=== PATIENT | female | born 1985 | race Hispanic/Latino ===

== ENCOUNTER 2017-08-09 10:24 | Inpatient (IN) | payer BC, OTHER ==
[2017-08-09 10:37] VITALS: O2SAT 100
[2017-08-09] MEDS ORDERED: Sodium Chloride 0.9% 1,000 ML IV STA (10:46)
--- NOTE | 2017-08-09 10:54 | ED PDOC ---
HPI: Female Pain Time Seen by Provider: 08/09/17 10:25 Chief Complaint (Nursing): Female Genitourinary Chief Complaint (Provider): with vaginal bleeding History Per: Patient Additional Complaint(s): 32 year old , currently 16 weeks presents with heavy vaginal bleeding that started earlier this morning. Patient states that she passed the fetus earlier this morning and since then has had persistent bleeding. She has slight cramping abdominal pain relieved by Motrin taken earlier. No associated nausea or vomiting, no fever or chills. Patient contacted her OB and was told to come to the emergency room. Past Medical History Reviewed: Historical Data, Nursing Documentation, Vital Signs Vital Signs: Last Vital Signs Temp 97 F L 08/09/17 10:30 Pulse 116 H 08/09/17 10:30 Resp 20 08/09/17 10:30 BP 137/83 08/09/17 10:30 Pulse Ox 100 08/09/17 10:30 - Medical History PMH: No Chronic Diseases - Family History Family History: States: No Known Family Hx - Living Arrangements Living Arrangements: With Family - Social History Current smoker - smoking cessation education provided: No Alcohol: Occasional Drugs: Denies - Home Medications Home Medications: Ambulatory Orders Medication Instructions Recorded No Known Home Med 08/09/17 - Allergies Allergies/Adverse Reactions: Allergies Allergy/AdvReac Type Severity Reaction Status Date / Time No Known Allergies Allergy Verified 08/09/17 11:13 Review of Systems ROS Statement: Except As Marked, All Systems Reviewed And Found Negative Constitutional: Negative for: Fever Genitourinary Female: Positive for: Vaginal Bleeding, Pelvic Pain Physical Exam - Reviewed Nursing Documentation Reviewed: Yes Vital Signs Reviewed: Yes - Physical Exam Appears: Positive for: Well, Non-toxic, No Acute Distress Skin: Negative for: Rash Eye Exam: Positive for: Normal appearance Cardiovascular/Chest: Positive for: Regular Rate, Rhythm Respiratory: Positive for: Normal Breath Sounds Gastrointestinal/Abdominal: Positive for: Other (Gravid nontender abdomen) Pelvic Exam: Positive for: Other (moderate amount of vaginal bleeding with retained products of conception noted in vaginal vault) Neurologic/Psych: Positive for: Alert, Oriented - Laboratory Results Result Diagrams: 08/09/17 11:04 - ECG O2 Sat by Pulse Oximetry: 100 Pulse Ox Interpretation: Normal Medical Decision Making Medical Decision Makin32 year old female with vaginal bleeding Plan: Case was d/w Dr. Trevino, patient's OB who states to order CBC, T&S, Beta and Pelvic US Dr. Trevino at bedside for examination LR infused IV Dr. Trevino to take patient to OR for D&C. Disposition - Clinical Impression Clinical Impression: Incomplete - Patient ED Disposition Is Patient to be Admitted: Yes - Disposition Disposition Time: 12:36 Condition: STABLE Forms: [employer] (Italian) Results - Lab Results Lab Results: 08/09/17 08/09/17 08/09/17 11:04 11:04 11:04 WBC 12.2 H RBC 4.31 Hgb 11.2 L Hct 35.6 MCV 82.5 D MCH 26.0 L MCHC 31.5 L RDW 14.9 H Plt Count 138 MPV 11.3 Neut % (Auto) 79.9 H Lymph % (Auto) 12.4 L [place] % (Auto) 5.4 Eos % (Auto) 1.5 Baso % (Auto) 0.8 Neut # 9.8 H Lymph # 1.5 [place] # 0.7 Eos # 0.2 Baso # 0.1 Beta HCG, Quant 7325.00 Blood Type B POSITIVE Antibody Screen Pending BBK History Checked Patient has bt
[2017-08-09 11:09] LABS: BASO # 0.1 K/uL (0.0-0.2); BASO % 0.8 % (0.0-2.0); EOS # 0.2 K/uL (0.0-0.7); EOS % 1.5 % (0.0-4.0); HEMATOCRIT 35.6 % (34.0-47.0); LYMPH # 1.5 K/uL (1.0-4.3); LYMPH % 12.4 % (20.0-40.0); MEAN CORPUSCULAR HGB CONC 31.5 g/dL (33.0-37.0); MEAN PLATELET VOLUME 11.3 fl (7.2-11.7); MONO # 0.7 K/uL (0.0-0.8); MONO % 5.4 % (0.0-10.0); NEUT # 9.8 K/uL (1.8-7.0); NEUT % 79.9 % (50.0-75.0); RED CELL DISTRIBUTION WIDTH 14.9 % (11.5-14.5); WHITE BLOOD COUNT 12.2 K/uL (4.8-10.8)
[2017-08-09] MEDS ORDERED: Lactated Ringer's 1,000 ML IV ONE ×2 (11:15→13:25)
[2017-08-09 11:17] LABS: MEAN CELL VOLUME 82.5 fl (81.0-99.0)
--- NOTE | 2017-08-09 11:46 | CP.SDSHP ---
Same Day Surgery H & P - History Proposed Procedure: D&C Pre-Op Diagnosis: Incomplete Ab - Previous Medical/Surgical History Previous Surgical History: 2012 - colonoscopy - Allergies Allergies: Allergies No Known Allergies Allergy (Verified 08/09/17 11:13) - Current Medications Current Medications: vitamins - Physical Exam Vital Signs: Vital Signs 08/09/17 08/09/17 08/09/17 10:30 11:08 11:36 Temperature 97 F L 97 F L Pulse Rate 116 H 116 H Respiratory 20 20 Rate Blood Pressure 137/83 137/83 O2 Sat by Pulse 100 100 Oximetry Mental Status: Alert & Oriented x3 Neuro: WNL Heart: WNL Lungs: WNL GI: WNL - {Optional Preform as Required} Abdomen: WNL Integument: WNL CAR LOT ATTENDANT: Other : WNL ENT: WNL Other Pertinent Findings: Blood clot and POC at cervical os...teased out but tissue still in cervix; open 1cm; uterus 8-9w size - Impression Impression: Incomplete . PLAN: D&C; informed consent discussed and obtained - Date & Time Date: 08/09/17 (c/o passing fetus and umbilical cord at home had VB. She called because she had VB that did not stop) Time: 11:00 Short Stay Discharge - Short Stay Discharge Admitting Diagnosis/Reason for Visit: VAGINAL BLEEDING Disposition: HOME/ ROUTINE
[2017-08-09] MEDS ORDERED: ceFAZolin IV 1 gm in Dextrose 1 GM/50 ML BAG IVPB ONE ×2 (11:48→12:33)
[2017-08-09] MEDS ORDERED: Propofol 10 mg/ml Inj (20 ML) ONE (13:22)
[2017-08-09] MEDS ORDERED: Midazolam 2 MG/2 ML VIAL ONE (13:23)
[2017-08-09] MEDS ORDERED: Oxycodone/Acetaminophen 5/325 mg Tab PO PRN (13:47)
--- NOTE | 2017-08-09 13:52 | PCM.SURG1 ---
Surgeon's Initial Post Op Note - Surgeon's Notes Surgeon: Ginger Trevino DO Installers Mechanical: none Type of Anesthesia: General LMA Anesthesia Administered By: Dr Bloom Pre-Operative Diagnosis: Incomplete Operative Findings: cervix open 1-2cm ; uterus 9w size Post-Operative Diagnosis: same Operation Performed: Evacuation and currettage Specimen/Specimens Removed: products of conception Estimated Blood Loss: EBL {In ML}: 20 Blood Products Given: N/A Drains Used: No Drains Post-Op Condition: Good Date of Surgery/Procedure: 08/09/17 Time of Surgery/Procedure: 13:30
[2017-08-09] MEDS ORDERED: Lactated Ringer's 1,000 ML IV SCH ×2 (14:00→14:15)
[2017-08-09] MEDS ORDERED: DiphenhydrAMINE 50 mg/ml Inj IVP PRN (14:10)
[2017-08-09] MEDS ORDERED: HYDROmorphone 0.5 mg/0.5 ml ISec IVP PRN (14:10)
[2017-08-09 14:21] VITALS: RESP 19
[2017-08-09 14:54] VITALS: BP 98/60; PULSE 75; TEMP 98
--- NOTE | 2017-08-09 17:48 | US ---
PROCEDURE: Ob/pelvic ultrasound HISTORY: Sixteen weeks ; heavy bleeding COMPARISON: Comparison made with prior pelvic ultrasound dated dated 03/04/2017 FINDINGS: UTERUS: The uterus is retroverted measuring approximately 9.3 x 7.0 x 7.6 cm. . No evidence of viable intrauterine gestation seen. There is a relatively large complex appearing structure within the endometrial canal measures approximate 3.0 x 3.4 x 4.7 cm. There appears to be some increased flow along the fundal margin of this structure that could represent a combination of clot and retained products of conception however clinical correlation recommended. CERVIX: Cervix is closed measuring approximately 3.28 cm RIGHT OVARY: Right ovary measures approximately 3.0 x 2.3 x 1.4 cm. No mass lesion. Normal flow. LEFT OVARY: Left ovary measures approximately 2.8 x 3.2 x 2.4 cm. No solid mass. Normal flow. FREE FLUID: No gross free fluid OTHER FINDINGS: None. IMPRESSION: There is no viable intrauterine gestation. There is a complex some structure within the lower endometrial canal that exhibits increased vascularity along the fundal margin ; findings suggest retained products of conception and clot however clinical correlation recommended. These findings were discussed with Dr. Trevino.
--- NOTE | 2017-08-10 07:24 | CP.PCM.DIS ---
Provider - Provider Date of Admission: 08/09/17 11:00 Attending physician: Alvarado Trevino DO Time Spent in preparation of Discharge (in minutes): 5 Hospital Course - Lab Results Lab Results: Most Recent Lab Values WBC 12.2 K/uL (4.8-10.8) H 08/09/17 11:04 RBC 4.31 Mil/uL (3.80-5.20) 08/09/17 11:04 Hgb 11.2 g/dL (12.0-16.0) L 08/09/17 11:04 Hct 35.6 % (34.0-47.0) 08/09/17 11:04 MCV 82.5 fl (81.0-99.0) D 08/09/17 11:04 MCH 26.0 pg (27.0-31.0) L 08/09/17 11:04 MCHC 31.5 g/dL (33.0-37.0) L 08/09/17 11:04 RDW 14.9 % (11.5-14.5) H 08/09/17 11:04 Plt Count 138 K/uL (130-400) 08/09/17 11:04 MPV 11.3 fl (7.2-11.7) 08/09/17 11:04 Neut % (Auto) 79.9 % (50.0-75.0) H 08/09/17 11:04 Lymph % (Auto) 12.4 % (20.0-40.0) L 08/09/17 11:04 [place] % (Auto) 5.4 % (0.0-10.0) 08/09/17 11:04 Eos % (Auto) 1.5 % (0.0-4.0) 08/09/17 11:04 Baso % (Auto) 0.8 % (0.0-2.0) 08/09/17 11:04 Neut # 9.8 K/uL (1.8-7.0) H 08/09/17 11:04 Lymph # 1.5 K/uL (1.0-4.3) 08/09/17 11:04 [place] # 0.7 K/uL (0.0-0.8) 08/09/17 11:04 Eos # 0.2 K/uL (0.0-0.7) 08/09/17 11:04 Baso # 0.1 K/uL (0.0-0.2) 08/09/17 11:04 Beta HCG, Quant 7325.00 mIU/mL 08/09/17 11:04 Blood Type B POSITIVE 08/09/17 11:04 Antibody Screen Negative 08/09/17 11:04 BBK History Checked Patient has bt 08/09/17 11:04 - Hospital Course Hospital Course: Admitted for D&C - Date & Time of H&P Date of H&P: 08/10/17 Time of H&P: 11:00 Discharge Exam - Head Exam Head Exam: NORMAL INSPECTION - GI/Abdominal Exam GI & Abdominal Exam: Unremarkable - Exam External exam: NORMAL EXTERNAL EXAM Additional comments: Cx open 1cm Discharge Plan - Discharge Medications Prescriptions: Acetaminophen with Codeine [Tylenol with Codeine #3 Tablet] 1 each PO Q4H PRN # 15 tablet PRN Reason: Pain, Moderate (4-7) - Follow Up Plan Condition: STABLE Disposition: HOME/ ROUTINE Instructions: Dilation and Curettage (DC) Additional Instructions: regular diet as tolerated take tylenol #3 for pain as needed every 4 hours no sex, douches, tampons until cleared to do so by MD drink lots of liquids and iron rich foods Follow up with Dr. Trevino in 2-3 weeks ( call for appt) Seek medical attention if you are soaking pads, you feel dizzy or light headed, you have new or increase in pain ,fever, fowl smell from vagina OR FOR ANY OTHER CONCERNS Referrals: Alvarado Trevino DO [Staff Provider] -
--- NOTE | 2017-08-11 08:45 | OP ---
PROCEDURE DATE: 08/09/2017 PREOPERATIVE DIAGNOSIS: Incomplete . POSTOPERATIVE DIAGNOSIS: Incomplete . OPERATION PERFORMED: Evacuation and curettage. SURGEON: Alvarado Trevino MD WATER TAXI CAPTAIN: None. ANESTHESIA ADMINISTERED BY: Natan Cabrera MD TYPE OF ANESTHESIA: General LMA. OPERATIVE FINDINGS: Cervix open 1 to 2 cm, products of conception noted with in the cervical os, uterus approximately 9 weeks in size. SPECIMEN: Products of conception. BLOOD LOSS: 20 mL. DRAINS: No drains. POSTOPERATIVE CONDITION: Good. DESCRIPTION OF PROCEDURE: Jacque was brought to the operating room, placed in a supine position. After successful induction of anesthesia by Dr. Cabrera, compression boots were placed on both lower extremities. She was placed on lithotomy position. She was draped and prepped in the usual sterile manner. Catheter was used to drain the bladder of its contents. Exam under anesthesia was performed and the above findings noted. A weighted speculum was placed in the posterior fornix of the vagina, right-angle retractor in the anterior fornix of the vagina to visualize the cervix. Cervix was grasped at the 12 o'clock position using a ring forceps. Thereafter, specimen was obtained from the endometrium using open forceps. Thereafter, curetting was performed circumferentially until more specimen was obtained. Large amounts of specimen was obtained and sent to Pathology lab. Blood pressure was checked. Methergine 0.2 mg IM was given x1 dose. All equipment were removed and accounted for. Good hemostasis was assured. She was brought to the recovery room in stable condition. Alvarado Trevino DO
== END 2017-08-09 16:40 | disposition home or self-care (01) | DRG 770 ==
LOC: H.ER 10:24 → H.ERHOLD 11:00 → H.PEDS 14:52
PROVIDERS: ADMIT Obstetrics & Gynecology; ATTEND Obstetrics & Gynecology
PROC: 10D17ZZ Extraction of Products of Conception, Retained, Via Natural or Artificial Opening (ICD-10-PCS; principal; 2017-08-09 13:00)
DX: O03.4 Incomplete spontaneous abortion without complication (principal); Z3A.16 16 weeks gestation of pregnancy

== ENCOUNTER 2018-09-11 17:24 | Inpatient (IN) | payer OTHER ==
[2018-09-11 20:17] VITALS: BMI 37.5
--- NOTE | 2018-09-11 21:29 | OBADHP ---
Datetime: 09/11/2018 20:53 IP Chief Complaint Other: Scheduled IOL Admit Comment, IP Provider: HPI: Jacque is a 33 year old at 39.5 weeks here for IOL. She buck d planned IOL at approximately 39 weeks d/t her history of a second trimester loss and cerclage place ment with this . She also was sent to L_D today d/t an estimated weight in the 99th% o n US 2 days ago. Denies any current ctx, LOF or vaginal bleeding. Good movement. History G1: 2010, SAB G2: 2015, at term, 8lb 6oz male G3: 2016, SAB G4: 2017, SAB G5: current Problems Multiple losses Cerclage placement and removal PMH Denies PSH Cerclage placement Medications ASA - stopped at 36 weeks PNV Allergies - NKDA Social History No alcohol, drugs or tobacco use Family History Not significant OBJECTIVE Vitals reviewed labs: B+, AB neg, RPR/HIV nonreactive, Hep B neg, GTT 119, GC/Chlamydia neg, Rubella immu ne, GBS NEGATIVE MFM Ultrasound / - EFW 4,493g (9lb 14oz) Bedside US: cephalic presentation ASSESSMENT/PLAN: 33 year old admitted for IOL at 39.5 secondary to history of labo r as well as suspected macrosomia - Admit to unit, plan to place cervidil overnight - GBS Negative - Cepahlic presentation - Suspected macrosomia with EFW in the 99th percentile but currently the weight does not warrant p lanned primary (<5,000g), pelvis appears adequate, anticipate vaginal delivery at this time Lynne Long MD OB Fellow OB Hospitalist Addendum: Pt seen by me. Agree w/ above. 33 yo at 39+5 wks for induction of labor w/ suspected macrosomia and cerclage placed w/ this . DHT reactive. Cervidil viki makayla at 2110. (ES) General - PN: Normal Presentation-Admit: Vertex FHR - Baseline A Provider: 125 Membranes, Provider: Intact Comments, ACOG Physical Exam: HEENT: mucous membranes moist Resp: nonlabored respirations CV: regular rate Abdomen: gravid, nontender Gestation - Est Wks by US: 39.5 IP Hx Assessment: The History has been Reviewed and is Current Vital Signs Provider: Reviewed; Within Normal Limits NICHD Variability Prov Fetus A: Moderate 6-25bpm NICHD Accel Fetus A IP Provider: [id number] NICHD Decel Fetus A IP Provider: None IP Adm Impression: Term, intrauterine IP Admit Plan: Admit to unit; Initiate labor induction protocol
[2018-09-11 22:25] LABS: BASO % 0.4 % (0.0-2.0); EOS # 0.1 K/uL (0.0-0.7); EOS % 1.4 % (0.0-4.0); HEMOGLOBIN 11.8 g/dL (12.0-16.0); LYMPH # 1.1 K/uL (1.0-4.3); LYMPH % 16.1 % (20.0-40.0); MEAN CELL VOLUME 86.2 fl (81.0-99.0); MEAN CORPUSCULAR HEMOGLOBIN 27.7 pg (27.0-31.0); MEAN CORPUSCULAR HGB CONC 32.2 g/dL (33.0-37.0); MONO # 0.6 K/uL (0.0-0.8); MONO % 8.4 % (0.0-10.0); NEUT # 5.2 K/uL (1.8-7.0); NEUT % 73.7 % (50.0-75.0); NRBC % 0.1 % (0.0-0.0); RBC 4.24 Mil/uL (3.80-5.20); RED CELL DISTRIBUTION WIDTH 14.9 % (11.5-14.5)
--- NOTE | 2018-09-12 11:22 | OBPN ---
Datetime: 09/12/2018 09:30 IP Progress Impression: Reassuring heart rate IP Informed Consent Obtain: Vaginal Delivery IP Progress Plan: Continue present management; Induction; Cervical Ripening; Anticipate Vaginal Deli very Pool Provider: Negative Membranes, Provider: Intact Contraction Comments Provider: occ FHR - Baseline A Provider: 120 IP Progress Note Comment: Jacque was admitted for IOL last night. She was given Cervidil x 1 and s he feels fine. A: IUP at39w PLAN: cont IOL with Cytotec. induction, labor and pain management discussed. Her questoins answered. NICHD Accel Fetus A IP Provider: [id number] FHR Category Provider Fetus A: Category I NICHD Variability Prov Fetus A: Moderate 6-25bpm Dilatation, Provider: FT ALINE Decel Fetus A IP Provider: None Datetime: 09/11/2018 20:53 Gestation - Est Wks by US: 39.5 Presentation-Admit: Vertex Vital Signs Provider: Reviewed; Within Normal Limits
--- NOTE | 2018-09-13 09:15 | OBPN ---
Datetime: 09/13/2018 09:01 IP Progress Impression Other: Induction of labor IP Procedures: Sterile Vag Exam IP Progress Plan: Cervical Ripening Contraction Comments Provider: irreg FHR - Baseline A Provider: 120's IP Progress Note Comment: 33 yo at 40 wks for induction, s/p cervidil and oral miso x 5 FHT reassuring, GBS negative Will place a cervidil this am NICHD Accel Fetus A IP Provider: 15X15 FHR Category Provider Fetus A: Category I NICHD Variability Prov Fetus A: Moderate 6-25bpm Dilatation, Provider: 0 Effacement, Provider: 0 Station, Provider: -3 NICHD Decel Fetus A IP Provider: None
[2018-09-13] MEDS: Lactated Ringer's 1,000 ML IV SCH ×2 (16:15→20:26)
[2018-09-13] MEDS ORDERED: Oxytocin 30 UNITS in Sodium Chloride 0.9% 500 ML IV ONE (19:41)
--- NOTE | 2018-09-13 20:14 | OBPN ---
Datetime: 09/13/2018 19:33 IP Informed Consent Obtain: Vaginal Delivery; Induction of Labor IP Procedures: Sterile Vag Exam IP Progress Plan: Induction Membranes, Provider: Intact Contraction Comments Provider: Q5-6 per maternal report FHR - Baseline A Provider: 120 Gestation - Est Wks by US: 40.0 Presentation-Admit: Vertex IP Progress Note Comment: Patient has been experiencing some regular, mild contractions for the last few hours. No LOF or vaginal bleeding. Category I strip A/P: 1. Patient now dilated to 3cm, cervix favorable for pitocin 2. EFM Category I, no interventions needed Lynne Long MD OB Fellow Vital Signs Provider: Reviewed; Within Normal Limits NICHD Accel Fetus A IP Provider: 15X15 FHR Category Provider Fetus A: Category I NICHD Variability Prov Fetus A: Moderate 6-25bpm Dilatation, Provider: 3 Effacement, Provider: 20 Station, Provider: -3 NICHD Decel Fetus A IP Provider: None
[2018-09-13] MEDS ORDERED: Lactated Ringer's 1,000 ML IV SCH (21:15)
[2018-09-14] MEDS: Lactated Ringer's 1,000 ML IV SCH ×2 (02:44→03:44)
[2018-09-14] MEDS ORDERED: Fentanyl/Bupivacaine HCl 250 ML EPI ONE (03:04)
[2018-09-14] MEDS ORDERED: Lidocaine 1% Inj (20ml) ONE (07:35)
--- NOTE | 2018-09-14 08:24 | OBDS ---
DELIVERY PERSONNEL Delivery Doctor: Ludin Patel MD Rubber Stamp Dies Inspector: Mylene Lopez RN Anesthesiologist: Dr. Glez MATERNAL INFORMATION Delivery Anesthesia: Local; Epidural Medications in Delivery: Pitocin, Lidocaine Placenta Cultured: No Maternal Complications: None Provider Comments: Pt progressed to complete and pushed to deliver a viable female through cl ear fluid at 0740. Apgars 9 and 9. Wt 8#14, 4020gms. placed on morther's abdomen. Delayed c ord clamping performed. Cord doubly clamped and FOB cut the cord. Placenta deliverd spontaneously i ntact w/ a 3vc at 0745. Second degree repaired w/ 0-v, 2-0 rapide and 3-0v. Bilateral sulcal tears noted. Pt and baby tolerated procedure well. No complications. EBL 250mL LABOR SUMMARY EDC: 09/13/2018 00:00 No. Babies in Womb: 1 Attempted: No LABOR INFORMATION Reason for Induction: Macrosomia Cervical Ripening Agents: Cervidil Group B Beta Strep: Negative Steroids Given: None Reason Steroids Not Administered: Not Applicable MEMBRANES Membranes Rupture Method: Spontaneous Amniotic Fluid Color: Clear Amniotic Fluid Amount: Moderate Amniotic Fluid Odor: Normal STAGES OF LABOR Stage 3 hrs: 0 Stage 3 min: 5 BABY A INFORMATION Infant Delivery Date/Time: 09/14/2018 07:40 Method of Delivery: Vaginal Born in Route : No : N/A Forceps: N/A Vacuum Extraction: N/A Shoulder Dystocia : No SHOULDER DYSTOCIA BABY A Infant Delivery Date/Time: 09/14/2018 07:40 PRESENTATION/POSITION BABY A Presentation: Cephalic PLACENTA INFORMATION BABY A Placenta Delivery Time : 09/14/2018 07:45 Placenta Method of Delivery: Spontaneous Placenta Status: Delivered INFORMATION BABY A Gestational Age at Delivery: 40.1 Gestational Status: Term Outcome : Liveborn Condition : Stable Infant Sex: Female IDENTIFICATION/MEDS BABY A ID Band Number: [id number] ID Band Location: Left Leg; Left Arm CORD INFORMATION BABY A Nuchal Cord : N/A Cord Blood Taken: Yes Infant Suction: None
[2018-09-14] MEDS ORDERED: Benzocaine/Menthol SPRAY TOP PRN ×2 (09:08→11:18)
[2018-09-14] MEDS ORDERED: Oxycodone/Acetaminophen 5/325 mg Tab PO PRN ×2 (09:08→11:18)
[2018-09-14] MEDS ORDERED: Oxytocin 30 UNIT 30 UNITS/500 ML BAG IV ONE ×2 (09:38→11:18)
[2018-09-15] MEDS ORDERED: Prenatal Multivit/Folic Acid/Iron Tab PO SCH (09:00)
[2018-09-15] MEDS ORDERED: Multivitamin With Minerals Tab PO SCH ×2 (09:00)
[2018-09-15 18:43] VITALS: BP 126/79; PULSE 97; RESP 20; TEMP 98.1; O2SAT 100
--- NOTE | 2018-09-16 01:12 | OBDCSUM ---
Datetime: 09/15/2018 12:55 Discharge Diagnosis, Provider: Term Delivered Discharge Time: 09/15/2018 14:30
--- NOTE | 2018-09-16 01:12 | OBPPN ---
Datetime: 09/15/2018 09:00 PP Pain Prov: Within normal limits PP Nausea Prov: Denies PP Flatus Prov: Yes PP BM Prov: Yes PP Breasts Prov: Normal PP Heart Prov: Normal PP Lungs Prov: Normal PP Abdomen/Uterus Prov: Normal PP Lochia Prov: Normal PP Vulva/Perineum Prov: Normal PP CVA Tenderness Prov: Normal PP Extremities Prov: Normal PP Progress Prov: Normal PP Impression Prov: Normal progression PP Plan Prov: Continue present management; Discharge PP Progress Note Prov: She feels fine and wantstog home later today. will discharge home and follow up in 6w Vital Signs Provider PP: Reviewed; Within Normal Limits
== END 2018-09-15 14:30 | disposition home or self-care (01) | DRG 806 ==
LOC: H.EROB2 17:24 → H.L&D 20:17 → H.OB/GYN 09-14 10:00
PROVIDERS: ADMIT Obstetrics & Gynecology; ATTEND Obstetrics & Gynecology
PROC: 4A1HXCZ Monitoring of Products of Conception, Cardiac Rate, External Approach (ICD-10-PCS; 2018-09-11)
PROC: 10E0XZZ Delivery of Products of Conception, External Approach (ICD-10-PCS; principal; 2018-09-14)
PROC: 0UQG7ZZ Repair Vagina, Via Natural or Artificial Opening (ICD-10-PCS; 2018-09-14)
DX: O36.63X0 Maternal care for excessive fetal growth, third trimester, not applicable or unspecified (principal); O71.4 Obstetric high vaginal laceration alone; O48.0 Post-term pregnancy; Z37.0 Single live birth; Z3A.40 40 weeks gestation of pregnancy